=== PATIENT | male | born 1960 | race Two or more races ===

== ENCOUNTER 2024-10-03 11:53 | Emergency (ER) | payer OTHER ==
[~2024-10-03] VITALS: Ht 180.3 cm; Wt 83.9 kg
[2024-10-03] MEDS ORDERED: TDAP [DIPH/PERTUSSIS/TET] 0.5 ML VIAL IM ONE (12:35)
[2024-10-03] MEDS ORDERED: LIDOCAINE 1% INJ 50 ML MDV IJ ONE (12:40)
[2024-10-03] MEDS: TDAP [DIPH/PERTUSSIS/TET] 0.5 ML VIAL IM ONE (12:44)
[2024-10-03] MEDS ORDERED: AMOX-430 PO (13:47)
[2024-10-03 13:58] VITALS: BP 136/76; TEMP 97.8; O2SAT 98
== END 2024-10-03 13:59 | disposition home or self-care (01) ==
LOC: ER 12:13
DX: S61.412A Laceration without foreign body of left hand, initial encounter (principal); W54.0XXA Bitten by dog, initial encounter; Y93.89 Activity, other specified; Y92.89 Other specified places as the place of occurrence of the external cause; Y99.8 Other external cause status
CPT/HCPCS: 99283; 12002; 90471; 90715; 73130; J3490; A6403